=== PATIENT | female | born 1980 | race Hispanic/Latino ===

== ENCOUNTER 2020-10-19 14:08 | Emergency (ER) | payer OTHER, SELFPAY ==
[2020-10-19] MEDS ORDERED: ALBUTEROL INHALER 90MCG/INH IH ONE (14:46)
[2020-10-19] MEDS ORDERED: ACETAMINOPHEN WITH CODEINE 1 TAB TAB ONE (14:48)
[2020-10-19] MEDS ORDERED: DEXAMETHASONE SOD PHOSPHATE 10MG/ML 1ML VIAL ONE (14:48)
[2020-10-19] MEDS ORDERED: ASPIRIN 325 MG TABLET ONE (14:48)
[2020-10-19] MEDS ORDERED: AZITHROMYCIN 250 MG TABLET PO ONE (14:48)
[2020-10-19] MEDS ORDERED: LEVOFLOXACIN 500 MG/D5W 100 ML 100 ML ONE (14:48)
[2020-10-19 15:39] LABS: ALBUMIN 3.8 g/dL (3.5-5.0); BILIRUBIN,TOTAL 0.3 mg/dL (0.2-1.0); POTASSIUM 3.5 mmol/L (3.5-5.1); TOTAL PROTEIN, SERUM 8.1 g/dL (6.0-8.3)
[2020-10-19 15:49] LABS: APPEARANCE,URINE CLOUDY (CLEAR); BILIRUBIN,URINE SMALL (NEGATIVE); COLOR,URINE YELLOW (YELLOW); GLUCOSE, URINE (UA) NEGATIVE (NEGATIVE); KETONES,URINE 5 mg/dL (NEGATIVE); LEUKOCYTE ESTERASE ,URINE NEGATIVE (NEGATIVE); NITRATE,URINE NEGATIVE (NEGATIVE); OCCULT BLOOD,URINE LARGE (NEGATIVE); PH,URINE 5.5 (5.0-8.0); PROTEIN,URINE 100 mg/dL (NEGATIVE)
[2020-10-19 16:00] LABS: RBC,URINE >100 /HPF (0-1)
[2020-10-19 16:03] LABS: BACTERIA,URINE Few /HPF (None Seen); SQUAMOUS EPITHELIAL CELL,UR Few /HPF (0-2)
[2020-10-19 16:03] LABS: BASOPHILS % (AUTO) 0.4 % (0.0-5.0); EOSINOPHILS % (AUTO) 1.3 % (0.0-8.0); HEMATOCRIT 34.2 % (36-48); LYMPHOCYTES % (AUTO) 28.8 % (21.0-51.0); MEAN CORPUSCULAR HEMOGLOBIN 31.4 pg (27.0-33.0); MEAN CORPUSCULAR HGB CONC 33.6 g/dL (32.0-36.0); MEAN CORPUSCULAR VOLUME 93.4 fL (79-99); MONOCYTES % (AUTO) 12.9 % (3.0-13.0); NEUTROPHILS % (AUTO) 56.4 % (40.0-77.0); PLATELET COUNT (AUTO) 286 K/uL (130-400); RED BLOOD CELL COUNT(AUTO) 3.66 MIL/uL (4.00-5.50); RED CELL DISTRIBUTION WIDTH 12.8 % (11.0-15.5); WHITE BLOOD COUNT (AUTO) 5.4 K/uL (4.8-10.8)
[2020-10-19 16:05] LABS: CREATININE 0.9 mg/dL (0.5-1.5)
[2020-10-19 16:12] LABS: INR 0.96 (0.85-1.15); PROTHROMBIN TIME 10.3 SEC (9.6-11.6)
[2020-10-19 16:14] LABS: PARTIAL THROMBOPLASTIN TIME 25.5 SEC (26.3-35.5)
== END 2020-10-19 16:50 | disposition home or self-care (01) ==
LOC: EDH 14:08
DX: U07.1 COVID-19 (principal); J12.9 Viral pneumonia, unspecified; Z88.0 Allergy status to penicillin
CPT/HCPCS: 36415; 71045; 80053; 81001; 82550; 83605; 84145; 84484; 85025; 85610; 85730; 87040 ×2; 87088; 87426; 87804 ×2; 87880; 96365; 96375; 99284; J1100; J1956

== ENCOUNTER 2020-10-24 23:51 | Inpatient (IN) | payer OTHER, SELFPAY ==
[~2020-10-24] VITALS: Ht 152.4 cm; Wt 100.2 kg
[2020-10-25] MEDS ORDERED: DEXAMETHASONE SOD PHOSPHATE 10MG/ML 1ML VIAL ONE (00:12)
[2020-10-25] MEDS ORDERED: CEFTRIAXONE SODIUM 2 GM VIAL ONE (00:13)
[2020-10-25] MEDS ORDERED: SODIUM CHLORIDE 0.9% 50 ML IV ONE (00:13)
[2020-10-25] MEDS ORDERED: AZITHROMYCIN 500MG+NS 250ML 250 ML IV ONE (00:13)
[2020-10-25] MEDS ORDERED: SODIUM CHLORIDE 0.9% 1000ML 1,000 ML IV ONE (00:41)
[2020-10-25 00:55] LABS: BASOPHILS % (AUTO) 0.1 % (0.0-5.0); HEMATOCRIT 38.4 % (36-48); LYMPHOCYTES % (AUTO) 12.4 % (21.0-51.0); MEAN CORPUSCULAR HEMOGLOBIN 30.5 pg (27.0-33.0); MEAN CORPUSCULAR HGB CONC 33.3 g/dL (32.0-36.0); MEAN CORPUSCULAR VOLUME 91.6 fL (79-99); MONOCYTES % (AUTO) 4.3 % (3.0-13.0); NEUTROPHILS % (AUTO) 82.8 % (40.0-77.0); PLATELET COUNT (AUTO) 310 K/uL (130-400); RED BLOOD CELL COUNT(AUTO) 4.19 MIL/uL (4.00-5.50); RED CELL DISTRIBUTION WIDTH 12.7 % (11.0-15.5); WHITE BLOOD COUNT (AUTO) 9.7 K/uL (4.8-10.8)
[2020-10-25 01:02] LABS: CREATININE 0.9 mg/dL (0.5-1.5); POTASSIUM 3.5 mmol/L (3.5-5.1)
[2020-10-25 01:06] LABS: ALBUMIN 3.6 g/dL (3.5-5.0); BILIRUBIN,TOTAL 0.4 mg/dL (0.2-1.0); TOTAL PROTEIN, SERUM 9.2 g/dL (6.0-8.3)
[2020-10-25 01:08] LABS: INR 0.92 (0.85-1.15); PROTHROMBIN TIME 9.9 SEC (9.6-11.6)
[2020-10-25 01:09] LABS: PARTIAL THROMBOPLASTIN TIME 22.5 SEC (26.3-35.5)
[2020-10-25 01:15] LABS: ABG BASE EXCESS -1.5 mmol/L (-2.0-3.0); ABG HCO3 21.9 mmol/L (21.0-28.0); ABG OXYGEN SATURATION 96.7 % (95.0-99.0); ABG PCO2 33 mmHg (32-45)
[2020-10-25 01:29] LABS: B-TYPE NATRIURETIC PEPTIDE 14 pg/mL (0-100)
[2020-10-25 03:12] LABS: APPEARANCE,URINE Clear (CLEAR); BILIRUBIN,URINE Small (NEGATIVE); COLOR,URINE Dark Yellow (YELLOW); GLUCOSE, URINE (UA) Negative (NEGATIVE); KETONES,URINE Trace mg/dL (NEGATIVE); LEUKOCYTE ESTERASE ,URINE Trace (NEGATIVE); NITRATE,URINE Negative (NEGATIVE); OCCULT BLOOD,URINE Trace (NEGATIVE); PH,URINE 5.5 (5.0-8.0); PROTEIN,URINE POS 1+ mg/dL (NEGATIVE)
[2020-10-25 03:21] LABS: BACTERIA,URINE Moderate /HPF (None Seen); MUCUS,URINE Moderate LPF (None Seen); RBC,URINE 0-1 /HPF (0-1); SQUAMOUS EPITHELIAL CELL,UR 0-2 /HPF (0-2); WBC,URINE 0-1 /HPF (0-1)
[2020-10-25] MEDS ORDERED: IOHEXOL 350 MG/ML 100ML INFUS..BTL IV ONE (04:45)
[2020-10-25] MEDS ORDERED: LEVE-43 PO (05:10)
[2020-10-25] MEDS ORDERED: DIVA500T69 PO (05:13)
[2020-10-25 06:00] VITALS: BP 97/65
[2020-10-25 07:22] LABS: BASOPHILS % (AUTO) 0.1 % (0.0-5.0); EOSINOPHILS % (AUTO) 1.8 % (0.0-8.0); LYMPHOCYTES % (AUTO) 11.9 % (21.0-51.0); MEAN CORPUSCULAR HEMOGLOBIN 30.1 pg (27.0-33.0); MEAN CORPUSCULAR HGB CONC 32.1 g/dL (32.0-36.0); MEAN CORPUSCULAR VOLUME 93.8 fL (79-99); MONOCYTES % (AUTO) 3.1 % (3.0-13.0); NEUTROPHILS % (AUTO) 82.7 % (40.0-77.0); PLATELET COUNT (AUTO) 301 K/uL (130-400); RED BLOOD CELL COUNT(AUTO) 3.52 MIL/uL (4.00-5.50); RED CELL DISTRIBUTION WIDTH 12.9 % (11.0-15.5); WHITE BLOOD COUNT (AUTO) 7.8 K/uL (4.8-10.8)
[2020-10-25] MEDS ORDERED: ERGOCALCIFEROL (VITAMIN D2) 50,000 UNIT CAPSULE PO SCH (08:45)
[2020-10-25] MEDS ORDERED: FAMOTIDINE/PF 20 MG/2 ML VIAL IV SCH (09:00)
[2020-10-25] MEDS ORDERED: PHARMACY COMMUNICATION MISC SCH (09:15)
[2020-10-25] MEDS: DEXAMETHASONE SOD PHOSPHATE 4 MG/ML 1ML VIAL IVP SCH (09:58)
[2020-10-25] MEDS: FAMOTIDINE/PF 20 MG/2 ML VIAL IV SCH ×2 (09:58→20:42)
[2020-10-25] MEDS: GUAIFENESIN-CODEINE 5 ML SYRUP PO PRN ×3 (09:58→20:42)
[2020-10-25] MEDS: LEVETIRACETAM 500 MG TABLET PO SCH ×2 (09:59→20:41)
[2020-10-25] MEDS: ZINC SULFATE 220 CAPSULE PO SCH (09:59)
[2020-10-25] MEDS: DOXYCYCLINE HYCLATE 100 MG TABLET PO SCH ×2 (09:59→20:41)
[2020-10-25] MEDS: ASCORBIC ACID 500 MG TAB PO SCH (09:59)
[2020-10-25] MEDS: ENOXAPARIN SODIUM 40 MG/0.4 ML SYRINGE SQ SCH (10:00)
[2020-10-25 14:46] VITALS: BP 132/85
[2020-10-25] MEDS ORDERED: SODIUM CHLORIDE 0.9% 250 ML IV ONE (15:49)
[2020-10-25 20:00] VITALS: BP 123/79
[2020-10-25] MEDS: DIVALPROEX SODIUM 1500 MG PO SCH (20:56)
[2020-10-25] MEDS ORDERED: DIVALPROEX SODIUM 250 MG TABLET.DR PO SCH (21:00)
[2020-10-26 00:35] VITALS: BP 126/68
[2020-10-26] MEDS: GUAIFENESIN-CODEINE 5 ML SYRUP PO PRN ×4 (02:03→21:34)
[2020-10-26] MEDS ORDERED: QUETIAPINE FUMARATE 25 MG TAB ONE (03:48)
[2020-10-26 04:12] VITALS: BP 123/66
[2020-10-26 05:30] LABS: BASOPHILS % (AUTO) 0.1 % (0.0-5.0); HEMATOCRIT 31.2 % (36-48); LYMPHOCYTES % (AUTO) 21.4 % (21.0-51.0); MEAN CORPUSCULAR HEMOGLOBIN 30.4 pg (27.0-33.0); MEAN CORPUSCULAR HGB CONC 32.7 g/dL (32.0-36.0); MEAN CORPUSCULAR VOLUME 93.1 fL (79-99); MONOCYTES % (AUTO) 4.8 % (3.0-13.0); NEUTROPHILS % (AUTO) 73.2 % (40.0-77.0); PLATELET COUNT (AUTO) 313 K/uL (130-400); RED BLOOD CELL COUNT(AUTO) 3.35 MIL/uL (4.00-5.50); WHITE BLOOD COUNT (AUTO) 10.2 K/uL (4.8-10.8)
[2020-10-26 05:55] LABS: ALBUMIN 2.9 g/dL (3.5-5.0); BILIRUBIN,TOTAL 0.5 mg/dL (0.2-1.0); CREATININE 0.9 mg/dL (0.5-1.5); CRP QUANTITATIVE 101.4 mg/L (0.00-9.0); POTASSIUM 3.6 mmol/L (3.5-5.1); TOTAL PROTEIN, SERUM 7.7 g/dL (6.0-8.3)
[2020-10-26 09:14] VITALS: BP 113/64
[2020-10-26] MEDS: DEXAMETHASONE SOD PHOSPHATE 4 MG/ML 1ML VIAL IVP SCH (09:15)
[2020-10-26] MEDS: ZINC SULFATE 220 CAPSULE PO SCH (09:15)
[2020-10-26] MEDS: ASCORBIC ACID 500 MG TAB PO SCH (09:15)
[2020-10-26] MEDS: LEVETIRACETAM 500 MG TABLET PO SCH ×2 (09:15→21:34)
[2020-10-26] MEDS: FAMOTIDINE/PF 20 MG/2 ML VIAL IV SCH ×2 (09:15→21:35)
[2020-10-26] MEDS: DOXYCYCLINE HYCLATE 100 MG TABLET PO SCH ×2 (09:15→21:34)
[2020-10-26] MEDS: ENOXAPARIN SODIUM 40 MG/0.4 ML SYRINGE SQ SCH (09:16)
[2020-10-26] MEDS ORDERED: PHARMACY COMMUNICATION MISC SCH (11:00)
[2020-10-26 13:00] VITALS: BP 113/79
[2020-10-26] MEDS ORDERED: REMDESIVIR (EUA) 520 200 MG in SODIUM CHLORIDE 0.9% 250 ML IV ONE (15:00)
[2020-10-26] MEDS ORDERED: COMPOUND IV REFRIGERATED 1 EACH IVSOLN MISC PRN (15:00)
[2020-10-26 17:24] VITALS: BP 118/75
[2020-10-26 20:00] VITALS: BP 94/53
[2020-10-26] MEDS: DIVALPROEX SODIUM 1500 MG PO SCH (21:00)
[2020-10-26] MEDS: QUETIAPINE FUMARATE 25 MG TAB PO SCH (21:34)
[2020-10-27 00:47] VITALS: BP 108/59
[2020-10-27] MEDS: GUAIFENESIN-CODEINE 5 ML SYRUP PO PRN ×6 (02:31→23:08)
[2020-10-27 05:09] VITALS: BP 93/58
[2020-10-27 05:46] LABS: EOSINOPHILS % (AUTO) 0.1 % (0.0-8.0); HEMATOCRIT 30.8 % (36-48); LYMPHOCYTES % (AUTO) 22.1 % (21.0-51.0); MEAN CORPUSCULAR HEMOGLOBIN 30.5 pg (27.0-33.0); MEAN CORPUSCULAR HGB CONC 32.5 g/dL (32.0-36.0); MEAN CORPUSCULAR VOLUME 93.9 fL (79-99); MONOCYTES % (AUTO) 4.4 % (3.0-13.0); NEUTROPHILS % (AUTO) 72.9 % (40.0-77.0); PLATELET COUNT (AUTO) 296 K/uL (130-400); RED BLOOD CELL COUNT(AUTO) 3.28 MIL/uL (4.00-5.50); RED CELL DISTRIBUTION WIDTH 12.9 % (11.0-15.5); WHITE BLOOD COUNT (AUTO) 8.8 K/uL (4.8-10.8)
[2020-10-27] MEDS: PHARMACY COMMUNICATION MISC SCH (06:00)
[2020-10-27 06:24] LABS: ALBUMIN 2.5 g/dL (3.5-5.0); BILIRUBIN,TOTAL 0.4 mg/dL (0.2-1.0); POTASSIUM 3.9 mmol/L (3.5-5.1); TOTAL PROTEIN, SERUM 7.3 g/dL (6.0-8.3)
[2020-10-27 06:37] LABS: CRP QUANTITATIVE 201.3 mg/L (0.00-9.0)
[2020-10-27 07:28] LABS: CREATININE 0.6 mg/dL (0.5-1.5)
[2020-10-27] MEDS: DEXAMETHASONE SOD PHOSPHATE 4 MG/ML 1ML VIAL IVP SCH (08:56)
[2020-10-27] MEDS: LEVETIRACETAM 500 MG TABLET PO SCH ×2 (08:56→19:49)
[2020-10-27] MEDS: ZINC SULFATE 220 CAPSULE PO SCH (08:56)
[2020-10-27] MEDS: DOXYCYCLINE HYCLATE 100 MG TABLET PO SCH ×2 (08:56→19:49)
[2020-10-27] MEDS: ASCORBIC ACID 500 MG TAB PO SCH (08:56)
[2020-10-27] MEDS: FAMOTIDINE/PF 20 MG/2 ML VIAL IV SCH ×2 (08:56→19:49)
[2020-10-27] MEDS: ENOXAPARIN SODIUM 40 MG/0.4 ML SYRINGE SQ SCH (08:58)
[2020-10-27] MEDS ORDERED: ONDANSETRON HCL 4 MG/2 ML VIAL IVP PRN (09:23)
[2020-10-27] MEDS: BENZONATATE 100 MG CAPSULE PO PRN ×2 (09:38→14:49)
[2020-10-27 10:22] VITALS: BP 103/51
[2020-10-27 12:00] VITALS: BP 110/68
[2020-10-27] MEDS: REMDESIVIR (EUA) 520 100 MG in SODIUM CHLORIDE 0.9% 250 ML IV SCH (14:52)
[2020-10-27 16:00] VITALS: BP 117/56
[2020-10-27 19:45] VITALS: BP 106/67
[2020-10-27] MEDS: QUETIAPINE FUMARATE 25 MG TAB PO SCH (19:49)
[2020-10-27] MEDS: DIVALPROEX SODIUM 1500 MG PO SCH (19:50)
[2020-10-28 00:04] VITALS: BP 90/55
[2020-10-28 03:51] VITALS: BP 96/52
[2020-10-28] MEDS: PHARMACY COMMUNICATION MISC SCH (05:41)
[2020-10-28 06:03] LABS: BASOPHILS % (AUTO) 0.1 % (0.0-5.0); EOSINOPHILS % (AUTO) 0.1 % (0.0-8.0); HEMATOCRIT 23.7 % (36-48); LYMPHOCYTES % (AUTO) 21.4 % (21.0-51.0); MEAN CORPUSCULAR HGB CONC 32.1 g/dL (32.0-36.0); MEAN CORPUSCULAR VOLUME 93.7 fL (79-99); MONOCYTES % (AUTO) 4.9 % (3.0-13.0); NEUTROPHILS % (AUTO) 73.1 % (40.0-77.0); PLATELET COUNT (AUTO) 274 K/uL (130-400); RED BLOOD CELL COUNT(AUTO) 2.53 MIL/uL (4.00-5.50); RED CELL DISTRIBUTION WIDTH 12.7 % (11.0-15.5); WHITE BLOOD COUNT (AUTO) 9.4 K/uL (4.8-10.8)
[2020-10-28 06:24] LABS: ALBUMIN 2.4 g/dL (3.5-5.0); BILIRUBIN,TOTAL 0.3 mg/dL (0.2-1.0); CREATININE 0.6 mg/dL (0.5-1.5); CRP QUANTITATIVE 154.3 mg/L (0.00-9.0); POTASSIUM 3.7 mmol/L (3.5-5.1)
[2020-10-28 08:00] VITALS: BP 128/75
[2020-10-28] MEDS: ASCORBIC ACID 500 MG TAB PO SCH (08:38)
[2020-10-28] MEDS: LEVETIRACETAM 500 MG TABLET PO SCH ×2 (08:38→20:11)
[2020-10-28] MEDS: GUAIFENESIN-CODEINE 5 ML SYRUP PO PRN ×3 (08:38→20:14)
[2020-10-28] MEDS: ZINC SULFATE 220 CAPSULE PO SCH (08:38)
[2020-10-28] MEDS: DOXYCYCLINE HYCLATE 100 MG TABLET PO SCH ×2 (08:38→20:11)
[2020-10-28] MEDS: FAMOTIDINE/PF 20 MG/2 ML VIAL IV SCH ×2 (08:38→20:11)
[2020-10-28] MEDS: BENZONATATE 100 MG CAPSULE PO PRN ×2 (08:38→16:46)
[2020-10-28] MEDS: ENOXAPARIN SODIUM 40 MG/0.4 ML SYRINGE SQ SCH (08:39)
[2020-10-28] MEDS: DEXAMETHASONE SOD PHOSPHATE 4 MG/ML 1ML VIAL IVP SCH (08:39)
[2020-10-28 12:25] VITALS: BP 124/75
[2020-10-28 12:27] LABS: HEMATOCRIT 31.8 % (36-48)
[2020-10-28] MEDS: REMDESIVIR (EUA) 520 100 MG in SODIUM CHLORIDE 0.9% 250 ML IV SCH (14:21)
[2020-10-28 16:00] VITALS: BP 97/56
[2020-10-28 19:00] VITALS: BP 93/53
[2020-10-28] MEDS: QUETIAPINE FUMARATE 25 MG TAB PO SCH (20:11)
[2020-10-28] MEDS: DIVALPROEX SODIUM 1500 MG PO SCH (20:11)
[2020-10-29 00:02] VITALS: BP 113/53
[2020-10-29 04:00] VITALS: BP 104/49
[2020-10-29] MEDS: PHARMACY COMMUNICATION MISC SCH (05:08)
[2020-10-29 06:09] LABS: BASOPHILS % (AUTO) 0.1 % (0.0-5.0); EOSINOPHILS % (AUTO) 0.2 % (0.0-8.0); HEMATOCRIT 30.6 % (36-48); LYMPHOCYTES % (AUTO) 21.4 % (21.0-51.0); MEAN CORPUSCULAR HEMOGLOBIN 30.4 pg (27.0-33.0); MEAN CORPUSCULAR HGB CONC 32.4 g/dL (32.0-36.0); MEAN CORPUSCULAR VOLUME 93.9 fL (79-99); MONOCYTES % (AUTO) 5.9 % (3.0-13.0); NEUTROPHILS % (AUTO) 71.8 % (40.0-77.0); PLATELET COUNT (AUTO) 304 K/uL (130-400); RED BLOOD CELL COUNT(AUTO) 3.26 MIL/uL (4.00-5.50); RED CELL DISTRIBUTION WIDTH 12.5 % (11.0-15.5); WHITE BLOOD COUNT (AUTO) 9.5 K/uL (4.8-10.8)
[2020-10-29 06:55] LABS: ALBUMIN 2.5 g/dL (3.5-5.0); BILIRUBIN,TOTAL 0.3 mg/dL (0.2-1.0); CREATININE 0.7 mg/dL (0.5-1.5); CRP QUANTITATIVE 107.4 mg/L (0.00-9.0); POTASSIUM 3.7 mmol/L (3.5-5.1); TOTAL PROTEIN, SERUM 7.1 g/dL (6.0-8.3)
[2020-10-29 08:00] VITALS: BP 159/69
[2020-10-29] MEDS: LEVETIRACETAM 500 MG TABLET PO SCH ×2 (08:32→20:41)
[2020-10-29] MEDS: DEXAMETHASONE SOD PHOSPHATE 4 MG/ML 1ML VIAL IVP SCH (08:33)
[2020-10-29] MEDS: ZINC SULFATE 220 CAPSULE PO SCH (08:33)
[2020-10-29] MEDS: FAMOTIDINE/PF 20 MG/2 ML VIAL IV SCH ×2 (08:33→20:41)
[2020-10-29] MEDS: ASCORBIC ACID 500 MG TAB PO SCH (08:33)
[2020-10-29] MEDS: DOXYCYCLINE HYCLATE 100 MG TABLET PO SCH ×2 (08:33→20:41)
[2020-10-29] MEDS: ENOXAPARIN SODIUM 40 MG/0.4 ML SYRINGE SQ SCH (08:34)
[2020-10-29] MEDS: GUAIFENESIN-CODEINE 5 ML SYRUP PO PRN ×3 (09:59→21:10)
[2020-10-29] MEDS: BENZONATATE 100 MG CAPSULE PO PRN ×2 (09:59→17:18)
[2020-10-29 11:57] VITALS: BP 105/60
[2020-10-29] MEDS: REMDESIVIR (EUA) 520 100 MG in SODIUM CHLORIDE 0.9% 250 ML IV SCH (15:10)
[2020-10-29 18:23] VITALS: BP 109/70
[2020-10-29 19:00] VITALS: BP 105/58
[2020-10-29] MEDS: DIVALPROEX SODIUM 1500 MG PO SCH (20:41)
[2020-10-29] MEDS: ENOXAPARIN SODIUM 60 MG/0.6 ML SQ SCH (20:42)
[2020-10-29] MEDS: QUETIAPINE FUMARATE 25 MG TAB PO SCH (20:42)
[2020-10-30 00:01] VITALS: BP 100/54
[2020-10-30] MEDS: BENZONATATE 100 MG CAPSULE PO PRN ×2 (00:19→10:34)
[2020-10-30 04:00] VITALS: BP 100/63
[2020-10-30] MEDS: PHARMACY COMMUNICATION MISC SCH (05:08)
[2020-10-30 06:01] LABS: BASOPHILS % (AUTO) 0.1 % (0.0-5.0); EOSINOPHILS % (AUTO) 0.7 % (0.0-8.0); HEMATOCRIT 29.8 % (36-48); LYMPHOCYTES % (AUTO) 27.2 % (21.0-51.0); MEAN CORPUSCULAR HEMOGLOBIN 30.2 pg (27.0-33.0); MEAN CORPUSCULAR HGB CONC 32.6 g/dL (32.0-36.0); MEAN CORPUSCULAR VOLUME 92.8 fL (79-99); MONOCYTES % (AUTO) 5.8 % (3.0-13.0); NEUTROPHILS % (AUTO) 65.5 % (40.0-77.0); PLATELET COUNT (AUTO) 307 K/uL (130-400); RED BLOOD CELL COUNT(AUTO) 3.21 MIL/uL (4.00-5.50); RED CELL DISTRIBUTION WIDTH 12.5 % (11.0-15.5); WHITE BLOOD COUNT (AUTO) 8.8 K/uL (4.8-10.8)
[2020-10-30 06:14] LABS: ALBUMIN 2.2 g/dL (3.5-5.0); BILIRUBIN,TOTAL 0.3 mg/dL (0.2-1.0); CREATININE 0.7 mg/dL (0.5-1.5); CRP QUANTITATIVE 86.3 mg/L (0.00-9.0); POTASSIUM 3.6 mmol/L (3.5-5.1); TOTAL PROTEIN, SERUM 6.5 g/dL (6.0-8.3)
[2020-10-30 07:20] VITALS: BP 118/64
[2020-10-30] MEDS: DEXAMETHASONE SOD PHOSPHATE 4 MG/ML 1ML VIAL IVP SCH (10:28)
[2020-10-30] MEDS: FAMOTIDINE/PF 20 MG/2 ML VIAL IV SCH ×2 (10:32→20:11)
[2020-10-30] MEDS: ASCORBIC ACID 500 MG TAB PO SCH (10:33)
[2020-10-30] MEDS: DOXYCYCLINE HYCLATE 100 MG TABLET PO SCH ×2 (10:34→20:11)
[2020-10-30] MEDS: LEVETIRACETAM 500 MG TABLET PO SCH ×2 (10:34→20:11)
[2020-10-30] MEDS: ZINC SULFATE 220 CAPSULE PO SCH (10:34)
[2020-10-30] MEDS: ENOXAPARIN SODIUM 60 MG/0.6 ML SQ SCH ×2 (10:37→20:12)
[2020-10-30 16:00] VITALS: BP 111/51
[2020-10-30] MEDS: GUAIFENESIN-CODEINE 5 ML SYRUP PO PRN (16:42)
[2020-10-30] MEDS: REMDESIVIR (EUA) 520 100 MG in SODIUM CHLORIDE 0.9% 250 ML IV SCH (16:42)
[2020-10-30 19:00] VITALS: BP 97/68
[2020-10-30] MEDS: QUETIAPINE FUMARATE 25 MG TAB PO SCH (20:11)
[2020-10-30] MEDS: DIVALPROEX SODIUM 1500 MG PO SCH (21:00)
[2020-10-31] VITALS (7 sets, daily range): BP systolic 90–124; BP diastolic 52–70
[2020-10-31] MEDS: PHARMACY COMMUNICATION MISC SCH (06:00)
[2020-10-31 06:20] LABS: BASOPHILS % (AUTO) 0.1 % (0.0-5.0); EOSINOPHILS % (AUTO) 0.5 % (0.0-8.0); HEMATOCRIT 31.3 % (36-48); LYMPHOCYTES % (AUTO) 27.3 % (21.0-51.0); MEAN CORPUSCULAR HEMOGLOBIN 30.3 pg (27.0-33.0); MEAN CORPUSCULAR HGB CONC 32.9 g/dL (32.0-36.0); MEAN CORPUSCULAR VOLUME 92.1 fL (79-99); MONOCYTES % (AUTO) 4.8 % (3.0-13.0); NUCLEATED RED BLOOD CELLS 0.2 % (0.0-0.19); PLATELET COUNT (AUTO) 320 K/uL (130-400); RED CELL DISTRIBUTION WIDTH 12.5 % (11.0-15.5); WHITE BLOOD COUNT (AUTO) 8.4 K/uL (4.8-10.8)
[2020-10-31 06:41] LABS: ALBUMIN 2.4 g/dL (3.5-5.0); BILIRUBIN,TOTAL 0.4 mg/dL (0.2-1.0); CREATININE 0.6 mg/dL (0.5-1.5); CRP QUANTITATIVE 87.4 mg/L (0.00-9.0); POTASSIUM 3.8 mmol/L (3.5-5.1); TOTAL PROTEIN, SERUM 6.6 g/dL (6.0-8.3)
[2020-10-31] MEDS: LEVETIRACETAM 500 MG TABLET PO SCH ×2 (09:30→19:53)
[2020-10-31] MEDS: DOXYCYCLINE HYCLATE 100 MG TABLET PO SCH ×2 (09:30→19:53)
[2020-10-31] MEDS: ASCORBIC ACID 500 MG TAB PO SCH (09:30)
[2020-10-31] MEDS: BENZONATATE 100 MG CAPSULE PO PRN (09:30)
[2020-10-31] MEDS: ZINC SULFATE 220 CAPSULE PO SCH (09:30)
[2020-10-31] MEDS: GUAIFENESIN-CODEINE 5 ML SYRUP PO PRN ×2 (09:31→15:55)
[2020-10-31] MEDS: FAMOTIDINE/PF 20 MG/2 ML VIAL IV SCH ×2 (09:31→19:53)
[2020-10-31] MEDS: DEXAMETHASONE SOD PHOSPHATE 4 MG/ML 1ML VIAL IVP SCH (09:31)
[2020-10-31] MEDS: ENOXAPARIN SODIUM 60 MG/0.6 ML SQ SCH ×2 (09:32→19:53)
[2020-10-31] MEDS: QUETIAPINE FUMARATE 25 MG TAB PO SCH (19:53)
[2020-10-31] MEDS: DIVALPROEX SODIUM 1500 MG PO SCH (19:59)
[2020-11-01 03:53] VITALS: BP 106/57
[2020-11-01] MEDS: GUAIFENESIN-CODEINE 5 ML SYRUP PO PRN ×3 (06:15→21:36)
[2020-11-01 08:20] VITALS: BP 100/58
[2020-11-01] MEDS: FAMOTIDINE/PF 20 MG/2 ML VIAL IV SCH ×2 (09:13→21:34)
[2020-11-01] MEDS: ASCORBIC ACID 500 MG TAB PO SCH (09:14)
[2020-11-01] MEDS: ZINC SULFATE 220 CAPSULE PO SCH (09:14)
[2020-11-01] MEDS: ENOXAPARIN SODIUM 60 MG/0.6 ML SQ SCH ×2 (09:14→21:35)
[2020-11-01] MEDS: LEVETIRACETAM 500 MG TABLET PO SCH ×2 (09:14→21:34)
[2020-11-01] MEDS: DEXAMETHASONE SOD PHOSPHATE 4 MG/ML 1ML VIAL IVP SCH (09:14)
[2020-11-01 12:30] VITALS: BP 86/44
[2020-11-01 16:20] VITALS: BP 132/81
[2020-11-01 20:25] VITALS: BP 103/60
[2020-11-01] MEDS: QUETIAPINE FUMARATE 25 MG TAB PO SCH (21:34)
[2020-11-01] MEDS: DIVALPROEX SODIUM 1500 MG PO SCH (21:36)
[2020-11-02 00:27] VITALS: BP 95/50
[2020-11-02] MEDS ORDERED: BENZONATATE 100 MG CAPSULE PO PRN (01:22)
[2020-11-02 04:29] VITALS: BP 96/48
[2020-11-02 08:17] VITALS: BP 90/61
[2020-11-02] MEDS: FAMOTIDINE/PF 20 MG/2 ML VIAL IV SCH ×2 (08:21→19:47)
[2020-11-02] MEDS: ZINC SULFATE 220 CAPSULE PO SCH (08:21)
[2020-11-02] MEDS: DEXAMETHASONE SOD PHOSPHATE 4 MG/ML 1ML VIAL IVP SCH (08:21)
[2020-11-02] MEDS: LEVETIRACETAM 500 MG TABLET PO SCH ×2 (08:21→19:47)
[2020-11-02] MEDS: ASCORBIC ACID 500 MG TAB PO SCH (08:21)
[2020-11-02] MEDS: ENOXAPARIN SODIUM 60 MG/0.6 ML SQ SCH ×2 (08:22→19:47)
[2020-11-02] MEDS: GUAIFENESIN-CODEINE 5 ML SYRUP PO PRN (11:26)
[2020-11-02 12:15] VITALS: BP 104/69
[2020-11-02 16:10] VITALS: BP 128/61
[2020-11-02] MEDS: BENZONATATE 100 MG CAPSULE PO SCH (17:12)
[2020-11-02] MEDS: QUETIAPINE FUMARATE 25 MG TAB PO SCH (19:47)
[2020-11-02 20:12] VITALS: BP 110/62
[2020-11-02] MEDS: DIVALPROEX SODIUM 1500 MG PO SCH (20:27)
[2020-11-03 00:12] VITALS: BP 96/62
[2020-11-03] MEDS: BENZONATATE 100 MG CAPSULE PO SCH ×3 (01:07→16:01)
[2020-11-03 04:04] LABS: ABG HCO3 28.5 mmol/L (21.0-28.0); ABG OXYGEN SATURATION 96.2 % (95.0-99.0); ABG PCO2 42 mmHg (32-45)
[2020-11-03 04:12] VITALS: BP 81/42
[2020-11-03 04:59] LABS: BASOPHILS % (AUTO) 0.2 % (0.0-5.0); EOSINOPHILS % (AUTO) 0.4 % (0.0-8.0); HEMATOCRIT 34.4 % (36-48); LYMPHOCYTES % (AUTO) 33.2 % (21.0-51.0); MEAN CORPUSCULAR VOLUME 93.7 fL (79-99); MONOCYTES % (AUTO) 4.4 % (3.0-13.0); NEUTROPHILS % (AUTO) 60.8 % (40.0-77.0); NUCLEATED RED BLOOD CELLS 0.2 % (0.0-0.19); PLATELET COUNT (AUTO) 328 K/uL (130-400); RED BLOOD CELL COUNT(AUTO) 3.67 MIL/uL (4.00-5.50); RED CELL DISTRIBUTION WIDTH 13.2 % (11.0-15.5); WHITE BLOOD COUNT (AUTO) 10.7 K/uL (4.8-10.8)
[2020-11-03 05:08] LABS: INR 1.02 (0.85-1.15); PROTHROMBIN TIME 10.9 SEC (9.6-11.6)
[2020-11-03 05:09] LABS: PARTIAL THROMBOPLASTIN TIME 27.2 SEC (26.3-35.5)
[2020-11-03 05:22] LABS: ALBUMIN 2.6 g/dL (3.5-5.0); BILIRUBIN,TOTAL 0.4 mg/dL (0.2-1.0); CREATININE 0.6 mg/dL (0.5-1.5); MAGNESIUM 2.6 mg/dL (1.80-2.40); PHOSPHORUS 4.2 mg/dL (2.5-4.9); TOTAL PROTEIN, SERUM 6.5 g/dL (6.0-8.3)
[2020-11-03 05:30] LABS: B-TYPE NATRIURETIC PEPTIDE 37 pg/mL (0-100)
[2020-11-03 08:26] VITALS: BP 97/60
[2020-11-03] MEDS: LEVETIRACETAM 500 MG TABLET PO SCH ×2 (09:16→19:49)
[2020-11-03] MEDS: DEXAMETHASONE SOD PHOSPHATE 4 MG/ML 1ML VIAL IVP SCH (09:16)
[2020-11-03] MEDS: ZINC SULFATE 220 CAPSULE PO SCH (09:16)
[2020-11-03] MEDS: ASCORBIC ACID 500 MG TAB PO SCH (09:16)
[2020-11-03] MEDS: ENOXAPARIN SODIUM 60 MG/0.6 ML SQ SCH ×2 (09:17→19:50)
[2020-11-03] MEDS: FAMOTIDINE/PF 20 MG/2 ML VIAL IV SCH ×2 (09:17→19:49)
[2020-11-03 12:25] VITALS: BP 95/58
[2020-11-03] MEDS: METHYLPREDNISOLONE SOD SUCC 125MG/2ML VIAL IVP SCH ×2 (16:05→22:11)
[2020-11-03 16:07] VITALS: BP 116/64
[2020-11-03] MEDS: QUETIAPINE FUMARATE 25 MG TAB PO SCH (19:49)
[2020-11-03] MEDS: DIVALPROEX SODIUM 1500 MG PO SCH (19:50)
[2020-11-03 20:00] VITALS: BP 99/60
[2020-11-04] MEDS: BENZONATATE 100 MG CAPSULE PO SCH ×3 (00:21→16:35)
[2020-11-04 00:38] VITALS: BP 103/58
[2020-11-04] MEDS: METHYLPREDNISOLONE SOD SUCC 125MG/2ML VIAL IVP SCH ×4 (04:15→21:02)
[2020-11-04 05:21] VITALS: BP 98/58
[2020-11-04 08:24] VITALS: BP 93/54
[2020-11-04] MEDS: ASCORBIC ACID 500 MG TAB PO SCH (08:29)
[2020-11-04] MEDS: FAMOTIDINE/PF 20 MG/2 ML VIAL IV SCH ×2 (08:29→21:02)
[2020-11-04] MEDS: LEVETIRACETAM 500 MG TABLET PO SCH ×2 (08:29→21:02)
[2020-11-04] MEDS: ZINC SULFATE 220 CAPSULE PO SCH (08:29)
[2020-11-04] MEDS: ENOXAPARIN SODIUM 40 MG/0.4 ML SYRINGE SQ SCH (08:29)
[2020-11-04] MEDS: ENOXAPARIN SODIUM 60 MG/0.6 ML SQ SCH ×2 (08:30→21:02)
[2020-11-04 11:25] VITALS: BP 107/61
[2020-11-04 16:23] VITALS: BP 103/54
[2020-11-04 20:33] VITALS: BP 106/54
[2020-11-04] MEDS: DIVALPROEX SODIUM 1500 MG PO SCH (21:00)
[2020-11-04] MEDS: QUETIAPINE FUMARATE 25 MG TAB PO SCH (21:02)
[2020-11-05 00:08] VITALS: BP 93/50
[2020-11-05] MEDS: BENZONATATE 100 MG CAPSULE PO SCH ×3 (01:07→16:30)
[2020-11-05] MEDS: METHYLPREDNISOLONE SOD SUCC 125MG/2ML VIAL IVP SCH ×3 (03:22→15:02)
[2020-11-05 04:43] VITALS: BP 95/60
[2020-11-05 08:02] VITALS: BP 97/61
[2020-11-05] MEDS: FAMOTIDINE/PF 20 MG/2 ML VIAL IV SCH (08:23)
[2020-11-05] MEDS: LEVETIRACETAM 500 MG TABLET PO SCH (08:24)
[2020-11-05] MEDS: ZINC SULFATE 220 CAPSULE PO SCH (08:24)
[2020-11-05] MEDS: ASCORBIC ACID 500 MG TAB PO SCH (08:24)
[2020-11-05] MEDS: ENOXAPARIN SODIUM 40 MG/0.4 ML SYRINGE SQ SCH (08:25)
[2020-11-05] MEDS: ENOXAPARIN SODIUM 60 MG/0.6 ML SQ SCH (08:25)
[2020-11-05 08:55] LABS: CREATININE 0.7 mg/dL (0.5-1.5); POTASSIUM 4.2 mmol/L (3.5-5.1)
[2020-11-05 11:38] VITALS: BP 101/59
== END 2020-11-05 17:12 | DRG 177 ==
LOC: EDH 23:51 → EDHIP 23:52 → 4BH 10-25 04:02
PROVIDERS: ADMIT Internal Medicine; ATTEND Internal Medicine
PROC: XW13325 Transfusion of Convalescent Plasma (Nonautologous) into Peripheral Vein, Percutaneous Approach, New Technology Group 5 (ICD-10-PCS; principal; 2020-10-25)
PROC: XW033E5 Introduction of Remdesivir Anti-infective into Peripheral Vein, Percutaneous Approach, New Technology Group 5 (ICD-10-PCS; 2020-10-27)
DX: U07.1 COVID-19 (principal); J96.01 Acute respiratory failure with hypoxia; J12.82 Pneumonia due to coronavirus disease 2019; J44.0 Chronic obstructive pulmonary disease with (acute) lower respiratory infection; N39.0 Urinary tract infection, site not specified; Z68.41 Body mass index [BMI] 40.0-44.9, adult; E66.01 Morbid (severe) obesity due to excess calories; E11.9 Type 2 diabetes mellitus without complications; G40.909 Epilepsy, unspecified, not intractable, without status epilepticus; G47.33 Obstructive sleep apnea (adult) (pediatric); Z82.49 Family history of ischemic heart disease and other diseases of the circulatory system; Z88.0 Allergy status to penicillin
CPT/HCPCS: 36415; 36430; 36600; 71045; 71275; 80048; 80053; 81001; 82550; 82803; 82948; 83605; 83615; 83880; 84145; 84484; 85014; 85018; 85025; 85378; 85610; 85730; 86140; 86850; 86900; 86901; 86927; 87040; 87088; 87426; 87804; 93005; G0378; J0456; J0696; J1100; J1650; J2405; J2930; J3490; J7030; J7050; Q9967

== ENCOUNTER 2021-08-08 10:02 | Emergency (ER) | payer OTHER, SELFPAY ==
[~2021-08-08] VITALS: Ht 152.4 cm; Wt 77.1 kg
[~2021-08-08 10:02] MED LIST: DIVA500T69 PO; LEVE-43 PO
[2021-08-08] MEDS ORDERED: 0.9%NACL 1000ML 1,000 ML IV STA (10:23)
[2021-08-08 10:44] LABS: BASOPHILS % (AUTO) 0.6 % (0.0-5.0); EOSINOPHILS % (AUTO) 2.3 % (0.0-8.0); HEMATOCRIT 25.2 % (36-48); LYMPHOCYTES % (AUTO) 40.2 % (21.0-51.0); MEAN CORPUSCULAR HEMOGLOBIN 26.6 pg (27.0-33.0); MEAN CORPUSCULAR HGB CONC 32.1 g/dL (32.0-36.0); MEAN CORPUSCULAR VOLUME 82.6 fL (79-99); MONOCYTES % (AUTO) 9.7 % (3.0-13.0); PLATELET COUNT (AUTO) 330 K/uL (130-400); RED BLOOD CELL COUNT(AUTO) 3.05 MIL/uL (4.00-5.50); WHITE BLOOD COUNT (AUTO) 6.2 K/uL (4.8-10.8)
[2021-08-08 10:51] LABS: CREATININE 0.6 mg/dL (0.5-1.5); POTASSIUM 4.2 mmol/L (3.5-5.1)
[2021-08-08] MEDS ORDERED: LIDOCAINE HCL 400MG/20ML VIAL ONE (11:35)
[2021-08-08 11:38] LABS: APPEARANCE,URINE Clear (CLEAR); BILIRUBIN,URINE Negative (NEGATIVE); COLOR,URINE Yellow (YELLOW); GLUCOSE, URINE (UA) Negative (NEGATIVE); KETONES,URINE Negative (NEGATIVE); LEUKOCYTE ESTERASE ,URINE Small (NEGATIVE); NITRATE,URINE Negative (NEGATIVE); OCCULT BLOOD,URINE Large (NEGATIVE); PROTEIN,URINE Negative (NEGATIVE); UROBILINOGEN,URINE 0.2 mg/dL (0.2-1.0)
[2021-08-08] MEDS ORDERED: KETOROLAC 30MG VIAL (30MG/ML) ONE (11:40)
[2021-08-08 11:58] LABS: BACTERIA,URINE Rare /HPF (None Seen); RBC,URINE 26-50 /HPF (0-1); SQUAMOUS EPITHELIAL CELL,UR Rare /HPF (0-2); WBC,URINE 0-1 /HPF (0-1)
[2021-08-08] MEDS ORDERED: KETOROLAC 30MG VIAL (30MG/ML) IV SCH (12:00)
[2021-08-08] MEDS ORDERED: MEDR10TA PO (12:48)
[2021-08-08] MEDS ORDERED: IBUP-2070 PO (12:48)
[2021-08-08] MEDS ORDERED: MEDROXYPROGESTERONE ACET 5 MG TAB PO SCH (13:00)
[2021-08-08 13:27] VITALS: BP 113/57
== END 2021-08-08 13:35 | disposition home or self-care (01) ==
LOC: EDH 10:02
DX: N83.201 Unspecified ovarian cyst, right side (principal); N83.202 Unspecified ovarian cyst, left side; N93.9 Abnormal uterine and vaginal bleeding, unspecified; E78.00 Pure hypercholesterolemia, unspecified; Z79.1 Long term (current) use of non-steroidal anti-inflammatories (NSAID); Z79.3 Long term (current) use of hormonal contraceptives; Z79.899 Other long term (current) drug therapy; Z88.0 Allergy status to penicillin
CPT/HCPCS: 36415; 76857; 80048; 81001; 84703; 96361; 85025; 96374; 99285; J1885; J7030; J3490

== ENCOUNTER 2022-09-15 20:17 | Emergency (ER) | payer OTHER ==
[~2022-09-15] VITALS: Ht 152.4 cm; Wt 91.2 kg
[~2022-09-15 20:17] MED LIST changes: +IBUP-2070 PO; +MEDR10TA PO
[2022-09-15 20:33] VITALS: BP 140/85
[2022-09-15] MEDS ORDERED: IPRATROPIUM/ALBUTEROL SULFATE 3 ML SOLUTION IH ONE (21:00)
[2022-09-15] MEDS ORDERED: BENZ-39 PO (21:48)
[2022-09-15] MEDS ORDERED: DIPH1POW36 PO (21:48)
[2022-09-15] MEDS ORDERED: METH4TAB3 PO (21:50)
== END 2022-09-15 22:19 | disposition home or self-care (01) ==
LOC: EDH 20:17
DX: M94.0 Chondrocostal junction syndrome [Tietze] (principal); J06.9 Acute upper respiratory infection, unspecified; Z79.1 Long term (current) use of non-steroidal anti-inflammatories (NSAID); Z88.0 Allergy status to penicillin; Z90.49 Acquired absence of other specified parts of digestive tract
CPT/HCPCS: 71045; 94640

== ENCOUNTER 2022-09-21 20:32 | Emergency (ER) | payer MEDICAID, OTHER ==
[~2022-09-21] VITALS: Ht 149.9 cm; Wt 90.7 kg
[~2022-09-21 20:32] MED LIST changes: +BENZ-39 PO; +DIPH1POW36 PO; +METH4TAB3 PO
[2022-09-21 20:49] VITALS: BP 159/89
[2022-09-21] MEDS: BENZONATATE 100 MG CAPSULE PO SCH ×2 (21:16→21:52)
[2022-09-21] MEDS ORDERED: IBUPROFEN 400 MG TABLET ONE (21:48)
[2022-09-21] MEDS ORDERED: IPRATROPIUM/ALBUTEROL SULFATE 3 ML SOLUTION IH ONE (22:00)
[2022-09-21] MEDS ORDERED: PROMETHAZINE/CODEINE 6.25-10MG/5ML CUP PO ONE (22:00)
[2022-09-21] MEDS ORDERED: LIDOCAINE HCL 1% 20 ML VIAL MISC SCH (22:00)
[2022-09-21 23:06] LABS: APPEARANCE,URINE TURBID (CLEAR); BILIRUBIN,URINE 0.5 mg/dL (NEGATIVE); COLOR,URINE YELLOW (YELLOW); GLUCOSE, URINE (UA) 30 mg/dL (NEGATIVE); KETONES,URINE 5 mg/dL (NEGATIVE); LEUKOCYTE ESTERASE ,URINE 75 Leu/uL (NEGATIVE); NITRATE,URINE NEGATIVE (NEGATIVE); PH,URINE 5.5 (5.0-8.0); PROTEIN,URINE 200 mg/dL (NEGATIVE)
[2022-09-21 23:21] LABS: HCG,QUALITATIVE URINE NEGATIVE (NEGATIVE)
[2022-09-21 23:24] LABS: BACTERIA,URINE FEW /HPF (None Seen); MUCUS,URINE MANY LPF (None Seen); SQUAMOUS EPITHELIAL CELL,UR MANY /HPF (0-2); WBC,URINE 26-50 /HPF (0-1)
[2022-09-21 23:43] LABS: BASOPHILS % (AUTO) 0.3 % (0.0-5.0); EOSINOPHILS % (AUTO) 1.2 % (0.0-8.0); HEMATOCRIT 38.6 % (36-48); MEAN CORPUSCULAR HEMOGLOBIN 31.4 pg (27.0-33.0); MEAN CORPUSCULAR HGB CONC 35.8 g/dL (32.0-36.0); MEAN CORPUSCULAR VOLUME 87.9 fL (79-99); MONOCYTES % (AUTO) 4.7 % (3.0-13.0); NEUTROPHILS % (AUTO) 80.4 % (40.0-77.0); PLATELET COUNT (AUTO) 321 K/uL (130-400); RED BLOOD CELL COUNT(AUTO) 4.39 MIL/uL (4.00-5.50); WHITE BLOOD COUNT (AUTO) 17.8 K/uL (4.8-10.8)
[2022-09-21 23:54] LABS: ALBUMIN 3.8 g/dL (3.5-5.0)
[2022-09-21 23:58] LABS: TOTAL PROTEIN, SERUM 8.2 g/dL (6.0-8.3)
[2022-09-22 00:02] LABS: POTASSIUM 2.9 mmol/L (3.5-5.1)
[2022-09-22] MEDS ORDERED: LEVO750T68 PO (00:10)
[2022-09-22] MEDS ORDERED: KCL 20 MEQ ERTAB PO ONE (00:30)
== END 2022-09-22 00:27 | disposition home or self-care (01) ==
LOC: EDH 20:32
DX: J06.9 Acute upper respiratory infection, unspecified (principal); N39.0 Urinary tract infection, site not specified; R05.9 Cough, unspecified; Z20.822 Contact with and (suspected) exposure to COVID-19; Z88.0 Allergy status to penicillin; Z90.49 Acquired absence of other specified parts of digestive tract; Z98.890 Other specified postprocedural states; Z79.899 Other long term (current) drug therapy
CPT/HCPCS: 99284; 71045; 87635; 80053; 85025; 87088; 87880; 87804 ×2; 81001; 81025; 36415; 94640; C9803; Q0169

== ENCOUNTER 2023-02-17 13:10 | Emergency (ER) | payer MEDICAID ==
[~2023-02-17] VITALS: Ht 152.4 cm; Wt 61.7 kg
[~2023-02-17 13:10] MED LIST changes: +LEVO750T68 PO
[2023-02-17] MEDS ORDERED: LEVETIRACETAM 500 MG/5 ML SD VIAL IV SCH (15:00)
[2023-02-17] MEDS ORDERED: 0.9%NACL 1000ML 1,000 ML IV ONE (15:00)
[2023-02-17 15:28] LABS: APPEARANCE,URINE CLEAR (CLEAR); BILIRUBIN,URINE NEGATIVE (NEGATIVE); COLOR,URINE LIGHT-YELLOW (YELLOW); GLUCOSE, URINE (UA) NEGATIVE (NEGATIVE); KETONES,URINE NEGATIVE (NEGATIVE); LEUKOCYTE ESTERASE ,URINE NEGATIVE Leu/uL (NEGATIVE); NITRATE,URINE NEGATIVE (NEGATIVE); OCCULT BLOOD,URINE NEGATIVE (NEGATIVE); PH,URINE 6.5 (5.0-8.0); PROTEIN,URINE NEGATIVE (NEGATIVE); UROBILINOGEN,URINE 0.2 mg/dL (0.2-1.0)
[2023-02-17 15:35] LABS: AMPHET/METH SCREEN,URINE NEGATIVE (NEGATIVE); BARBITURATE SCREEN, URINE NEGATIVE (NEGATIVE); BENZODIAZEPINES SCREEN,URINE NEGATIVE (NEGATIVE); CANNABINOID SCREEN,URINE NEGATIVE (NEGATIVE); COCAINE SCREEN,URINE POSITIVE (NEGATIVE); OPIATE SCREEN,URINE NEGATIVE (NEGATIVE); PHENCYCLIDINE SCREEN,URINE NEGATIVE (NEGATIVE)
[2023-02-17 15:47] LABS: MUCUS,URINE RARE LPF (None Seen); RBC,URINE 0-1 /HPF (0-1); SQUAMOUS EPITHELIAL CELL,UR RARE /HPF (0-2)
[2023-02-17 16:26] VITALS: BP 138/67
[2023-02-17 16:33] LABS: BASOPHILS % (AUTO) 0.4 % (0.0-5.0); EOSINOPHILS % (AUTO) 2.9 % (0.0-8.0); HEMATOCRIT 36.7 % (36-48); LYMPHOCYTES % (AUTO) 28.3 % (21.0-51.0); MEAN CORPUSCULAR HEMOGLOBIN 31.2 pg (27.0-33.0); MEAN CORPUSCULAR HGB CONC 33.8 g/dL (32.0-36.0); MEAN CORPUSCULAR VOLUME 92.2 fL (79-99); NEUTROPHILS % (AUTO) 62.1 % (40.0-77.0); PLATELET COUNT (AUTO) 286 K/uL (130-400); RED BLOOD CELL COUNT(AUTO) 3.98 MIL/uL (4.00-5.50); RED CELL DISTRIBUTION WIDTH 13.1 % (11.0-15.5)
[2023-02-17 16:53] LABS: CREATININE 0.6 mg/dL (0.5-1.5); POTASSIUM 3.9 mmol/L (3.5-5.1)
[2023-02-17 16:58] LABS: ALBUMIN 3.3 g/dL (3.5-5.0); TOTAL PROTEIN, SERUM 7.4 g/dL (6.0-8.3)
[2023-02-17] MEDS ORDERED: LEVE1000 PO (17:22)
== END 2023-02-17 18:35 | disposition home or self-care (01) ==
LOC: EDH 13:10
DX: S09.90XA Unspecified injury of head, initial encounter (principal); S69.81XA Other specified injuries of right wrist, hand and finger(s), initial encounter; F14.10 Cocaine abuse, uncomplicated; R56.9 Unspecified convulsions; Z20.822 Contact with and (suspected) exposure to COVID-19; X58.XXXA Exposure to other specified factors, initial encounter; Y93.89 Activity, other specified; Y92.89 Other specified places as the place of occurrence of the external cause; Y99.8 Other external cause status
CPT/HCPCS: 99285; 70450; 96374; 87635; 80053; 80305; 85025; 87880; 87804 ×2; 83605; 81001; 81025; 36415; 73090; 73130; 72125; 70486; C9803; J1953; J7030

== ENCOUNTER 2023-02-24 00:28 | Emergency (ER) | payer MEDICAID ==
[~2023-02-24] VITALS: Ht 152.4 cm; Wt 89.8 kg
[~2023-02-24 00:28] MED LIST changes: +LEVE1000 PO
[2023-02-24 00:32] VITALS: BP 152/99
[2023-02-24] MEDS ORDERED: IOHEXOL 350 MG/ML 100ML INFUS..BTL IV ONE (19:44)
== END 2023-02-24 04:50 | disposition left against medical advice (07) ==
LOC: EDH 00:28
DX: R05.9 Cough, unspecified (principal); R09.81 Nasal congestion; R51.9 Headache, unspecified
CPT/HCPCS: 99281; Q9967

== ENCOUNTER 2023-02-24 05:03 | Emergency (ER) | payer MEDICAID ==
[~2023-02-24] VITALS: Ht 152.4 cm; Wt 89.8 kg
[2023-02-24] MEDS ORDERED: ACETAMINOPHEN 500 MG TABLET PO ONE (06:30)
[2023-02-24] MEDS ORDERED: IBUPROFEN 600 MG TABLET PO ONE (06:30)
[2023-02-24] MEDS ORDERED: LIDOCAINE HCL 2% VISCOUS 15 ML UDCUP ONE (06:41)
[2023-02-24] MEDS ORDERED: LIDOCAINE HCL 2% VISCOUS 15 ML UDCUP PO ONE (07:00)
[2023-02-24 08:47] VITALS: BP 124/78
== END 2023-02-24 08:49 | disposition home or self-care (01) ==
LOC: EDH 05:03
DX: J06.9 Acute upper respiratory infection, unspecified (principal); Z79.52 Long term (current) use of systemic steroids; Z88.0 Allergy status to penicillin; Z20.822 Contact with and (suspected) exposure to COVID-19
CPT/HCPCS: 99284; 99281; 87635; 87880; 87804 ×2; C9803; Q9967

== ENCOUNTER 2023-03-19 16:29 | Emergency (ER) | payer MEDICAID ==
[~2023-03-19] VITALS: Ht 152.4 cm; Wt 72.6 kg
[2023-03-19 17:29] LABS: BASOPHILS % (AUTO) 0.3 % (0.0-5.0); EOSINOPHILS % (AUTO) 2.2 % (0.0-8.0); HEMATOCRIT 34.7 % (36-48); LYMPHOCYTES % (AUTO) 25.1 % (21.0-51.0); MEAN CORPUSCULAR HEMOGLOBIN 30.6 pg (27.0-33.0); MEAN CORPUSCULAR HGB CONC 33.4 g/dL (32.0-36.0); MEAN CORPUSCULAR VOLUME 91.6 fL (79-99); MONOCYTES % (AUTO) 5.4 % (3.0-13.0); NEUTROPHILS % (AUTO) 66.7 % (40.0-77.0); PLATELET COUNT (AUTO) 267 K/uL (130-400); RED BLOOD CELL COUNT(AUTO) 3.79 MIL/uL (4.00-5.50); RED CELL DISTRIBUTION WIDTH 13.6 % (11.0-15.5)
[2023-03-19 17:37] LABS: CREATININE 0.8 mg/dL (0.5-1.5); POTASSIUM 3.9 mmol/L (3.5-5.1)
[2023-03-19 17:42] LABS: ALBUMIN 3.4 g/dL (3.5-5.0); TOTAL PROTEIN, SERUM 7.3 g/dL (6.0-8.3)
[2023-03-19 18:51] VITALS: BP 128/47
== END 2023-03-19 19:20 | disposition home or self-care (01) ==
LOC: EDH 16:29
DX: N83.202 Unspecified ovarian cyst, left side (principal); N93.8 Other specified abnormal uterine and vaginal bleeding; J45.909 Unspecified asthma, uncomplicated; Z79.52 Long term (current) use of systemic steroids; Z88.0 Allergy status to penicillin
CPT/HCPCS: 36415; 76856; 80053; 85025

== ENCOUNTER 2023-10-06 15:42 | Emergency (ER) | payer MEDICAID ==
[~2023-10-06] VITALS: Ht 152.4 cm; Wt 81.6 kg
[2023-10-06 15:57] VITALS: BP 167/75
[2023-10-06] MEDS ORDERED: ACETAMINOPHEN 500 MG TABLET PO ONE (17:00)
[2023-10-06 17:14] LABS: RAPID GROUP A STREP negative (NEGATIVE)
[2023-10-06 17:21] LABS: INFLUENZA TYPE A Negative For Type A (NEGATIVE); INFLUENZA TYPE B Negative For Type B (NEGATIVE)
[2023-10-06 17:22] LABS: SARS-CoV-2, RNA, NAAT POSITIVE SARS CoV-2 (NEGATIVE)
[2023-10-06] MEDS ORDERED: LORA-868 PO (17:35)
[2023-10-06] MEDS ORDERED: D-ME118S56 PO (17:35)
[2023-10-06 17:37] VITALS: PULSE 88; RESP 18; TEMP 98.9; O2SAT 100
== END 2023-10-06 17:42 | disposition home or self-care (01) ==
LOC: EDH 15:42
DX: U07.1 COVID-19 (principal); R05.9 Cough, unspecified; R50.9 Fever, unspecified; E03.9 Hypothyroidism, unspecified; J45.909 Unspecified asthma, uncomplicated; Z88.0 Allergy status to penicillin
CPT/HCPCS: 99283; 87635; 87880; 87804 ×2; C9803

== ENCOUNTER 2024-03-05 16:09 | Emergency (ER) | payer MEDICAID ==
[~2024-03-05] VITALS: Ht 152.4 cm; Wt 82.6 kg
[~2024-03-05 16:09] MED LIST changes: +D-ME118S56 PO; +LORA-868 PO
[2024-03-05] MEDS ORDERED: IBUP-2077 PO (18:20)
[2024-03-05] MEDS ORDERED: CLIN-141 PO (18:20)
[2024-03-05 18:48] VITALS: BP 135/87; PULSE 71; RESP 20; O2SAT 98
== END 2024-03-05 18:48 | disposition home or self-care (01) ==
LOC: EDH 16:09
DX: S02.5XXA Fracture of tooth (traumatic), initial encounter for closed fracture (principal); Z79.899 Other long term (current) drug therapy; Z90.49 Acquired absence of other specified parts of digestive tract; Z98.890 Other specified postprocedural states; Z88.0 Allergy status to penicillin; X58.XXXA Exposure to other specified factors, initial encounter; Y93.89 Activity, other specified; Y92.89 Other specified places as the place of occurrence of the external cause; Y99.8 Other external cause status

== ENCOUNTER 2024-09-26 22:01 | Emergency (ER) | payer MEDICAID ==
[~2024-09-26] VITALS: Ht 152.4 cm; Wt 87.3 kg
[~2024-09-26 22:01] MED LIST changes: -BENZ-39 PO; -D-ME118S56 PO; -DIPH1POW36 PO; -DIVA500T69 PO; -IBUP-2070 PO; -LEVE-43 PO; -LEVE1000 PO; +LEVE500T19 PO; -LEVO750T68 PO; -LORA-868 PO; -MEDR10TA PO; -METH4TAB3 PO
--- NOTE | 2024-09-26 22:08 | NUR ---
UA CUP PROVIDED
[2024-09-26 22:33] LABS: APPEARANCE,URINE CLEAR (CLEAR); BILIRUBIN,URINE NEGATIVE (NEGATIVE); COLOR,URINE LIGHT-YELLOW (YELLOW); GLUCOSE, URINE (UA) NEGATIVE (NEGATIVE); KETONES,URINE NEGATIVE (NEGATIVE); LEUKOCYTE ESTERASE ,URINE NEGATIVE Leu/uL (NEGATIVE); NITRATE,URINE NEGATIVE (NEGATIVE); OCCULT BLOOD,URINE NEGATIVE (NEGATIVE); PH,URINE 5.5 (5.0-8.0); PROTEIN,URINE 10 mg/dL (NEGATIVE); UROBILINOGEN,URINE 0.2 mg/dL (0.2-1.0)
[2024-09-26 22:36] LABS: ADD UA MICROSCOPIC YES
[2024-09-26 22:37] LABS: MUCUS,URINE RARE LPF (None Seen); SQUAMOUS EPITHELIAL CELL,UR RARE /HPF (0-2)
[2024-09-26 22:37] LABS: BASOPHILS # (AUTO) 0.04 K/uL (0.00-0.20); BASOPHILS % (AUTO) 0.3 % (0.0-5.0); CREATININE 0.8 mg/dL (0.5-1.0); EOSINOPHILS # (AUTO) 0.43 K/uL (0.00-0.70); EOSINOPHILS % (AUTO) 3.6 % (0.0-8.0); HEMATOCRIT 35.5 % (36-48); IMMATURE GRANULOCYTE ABSOLUTE 0.04 K/uL (0-1); LYMPHOCYTES # (AUTO) 3.4 K/uL (1.0-4.8); LYMPHOCYTES % (AUTO) 28.5 % (21.0-51.0); MEAN CORPUSCULAR HEMOGLOBIN 32.4 pg (27.0-33.0); MEAN CORPUSCULAR HGB CONC 33.5 g/dL (32.0-36.0); MEAN CORPUSCULAR VOLUME 96.7 fL (79-99); MONOCYTES # (AUTO) 0.8 K/uL (0.1-1.0); MONOCYTES % (AUTO) 6.4 % (3.0-13.0); NEUTROPHILS # (AUTO) 7.3 K/uL (1.8-7.7); NEUTROPHILS % (AUTO) 60.9 % (40.0-77.0); PLATELET COUNT (AUTO) 255 K/uL (130-400); POTASSIUM 3.7 mmol/L (3.5-5.1); RED BLOOD CELL COUNT(AUTO) 3.67 MIL/uL (4.00-5.50); RED CELL DISTRIBUTION WIDTH 13.1 % (11.0-15.5)
--- NOTE | 2024-09-26 22:52 | ERN ---
ED Note History of Present Illness Stated Complaint: LEFT LOWER QUADRANT PAIN Chief Complaint: Pelvic Pain Time Seen by MD: 22:06 Dictation: This is a 44-year-old obese female who presented to the emergency room with complaints of left lower quadrant abdominal pain for the past 4 days. She was admitted to the hospital during the last week of August for abdominal pain and nausea vomitings and at which time Dr. Gage operated and removed left ovary for an ovarian cyst on 09/06/2024. Postoperative course was uneventful and she was doing fairly well she was seen at [facility] on 09/25 and was told coat she had fluid in the wound. She denied any drainage of incision site. No nausea vomitings diarrhea hematemesis or melena she does report intermittently urinary retention. She took Motrin at 8:00 p.m.. She denied any hematuria dysuria. Temperature 97.8 pulse 67 respirations 20 blood pressure 191/121 with a pulse oximetry of 98% on room air Her chronic medical problems include anxiety depression bipolar disorder, asthma and history of seizure disease. Allergies: Coded Allergies: morphine (Unverified Allergy, Mild, ITCHING, 09/06/24) Penicillins (Unverified Allergy, Unknown, RASH, 10/25/20) Home Meds Reported Medications Levetiracetam (Levetiracetam) 500 Mg Tablet, 1 TAB PO BID for 30 Days, #60 TAB 0 Refills 09/06/24 Past Medical History Past Medical History: Anxiety, Asthma, Bipolar, Depression, Seizure Additional Past Medical Hx: OVARIAN CYST Surgical History: Cholecystectomy, Other, Surgical History Other: LEFT OVARY Social History: Negative History: Not Applicable RN Note Reviewed/Agreed w/PFSH: Yes Review of System Dictation Constitutional: Negative for fever,chills, and weight loss Eyes: Negative for injury, pain,redness, and discharge ENT: Negative for injury,pain or swelling Cardiovascular: Negative for chest pain, palpitations, and edema Respiratory: Negative for shortness of breath, cough, and wheezing, Abdomen/GI: Positive for left lower quadrant abdominal pain, denies nausea, vomiting, diarrhea, and constipation Back: Negative for injury and pain : Negative for injury, bleeding and discharge MS/Extremity: Negative for injury and deformity Skin: Negative for rash, and discoloration Neuro: Negative for headache, weakness, numbness, tingling, and seizure Psych: Negative for suicide ideation, homicidal ideation, and hallucinations Initial Vital Sign VS Vital Signs Date Time Temp Pulse Resp B/P (MAP) Pulse Ox O2 Delivery O2 Flow Rate FiO2 09/26/24 22:02 97.9 67 20 191/121 98 Room Air 09/26/24 22:09 0 21 Physical Exam Dictation General: awake, alert, NAD Head/Face: Normocephalic, atraumatic Eyes: PERRL, EOMI, vision at baseline ENT: oral cavity clear, TMs clear, no signs of infection Neck: Trachea midline, supple, no nuchal rigidity Cardiovascular: RRR, normal S1/S2, No MRGs, no JVD Respiratory: CTAB, no respiratory distress, No rales or wheezes Abdomen: Soft, mild tenderness in the left flank and lower quadrant, non- distended, normal bowel sounds, no guarding or rebound. Skin: Warm, dry, normal turgor, no rash MS/Extremity: Pulses equal, no cyanosis, neurovascular intact, FROM Neuro: COAx4, GCS 15, strength 5/5, CN 2-12 intact, normal cerebellar exam, normal gait, Psych: Normal behavior, mood, and affect normal Extremities-trace edema without any palpable cords, Homans sign is negative Results (Laboratory/Radiology) Laboratory/Radiology Laboratory Tests Test 09/26/24 22:00 09/26/24 22:15 Urine Color LIGHT-YELLOW (YELLOW) Urine Appearance CLEAR (CLEAR) Urine pH 5.5 (5.0-8.0) Urine Specific Jarales 1.032 (1.001-1.031) Urine Protein 10 mg/dL (NEGATIVE) H Urine Glucose (UA) NEGATIVE mg/dL (NEGATIVE) Urine Ketones NEGATIVE mg/dL (NEGATIVE) Urine Occult Blood NEGATIVE (NEGATIVE) Urine Nitrate NEGATIVE (NEGATIVE) Urine Bilirubin NEGATIVE mg/dL (NEGATIVE) Urine Urobilinogen 0.2 mg/dL (0.2-1.0) Urine Leukocyte Esterase NEGATIVE Latanya/uL Urine RBC 2-5 /HPF (0-1) H Urine WBC 2-5 /HPF (0-1) H Urine Squamous Epithelial Cells RARE /HPF (0-2) Urine Bacteria None /HPF (None Seen) White Blood Count 12.0 K/uL (4.8-10.8) H Red Blood Count 3.67 MIL/uL (4.00-5.50) L Hemoglobin 11.9 g/dL (12.0-16.0) L Hematocrit 35.5 % (36-48) L Mean Corpuscular Volume 96.7 fL (79-99) Mean Corpuscular Hemoglobin 32.4 pg (27.0-33.0) Mean Corpuscular Hemoglobin Concent 33.5 g/dL (32.0-36.0) Red Cell Distribution Width 13.1 % (11.0-15.5) Platelet Count 255 K/uL (130-400) Mean Platelet Volume 14.1 fL (7.5-10.5) H Immature Granulocyte % (Auto) 0.3 % (0-1) Neutrophils (%) (Auto) 60.9 % (40.0-77.0) Lymphocytes (%) (Auto) 28.5 % (21.0-51.0) Monocytes (%) (Auto) 6.4 % (3.0-13.0) Eosinophils (%) (Auto) 3.6 % (0.0-8.0) Basophils (%) (Auto) 0.3 % (0.0-5.0) Neutrophils # (Auto) 7.3 K/uL (1.8-7.7) Lymphocytes # (Auto) 3.4 K/uL (1.0-4.8) Monocytes # (Auto) 0.8 K/uL (0.1-1.0) Eosinophils # (Auto) 0.43 K/uL (0.00-0.70) Basophils # (Auto) 0.04 K/uL (0.00-0.20) Absolute Immature Granulocyte (auto 0.04 K/uL (0-1) Nucleated Red Blood Cells 0.0 % (0.0-0.19) Sodium Level 138 mmol/L (136-145) Potassium Level 3.7 mmol/L (3.5-5.1) Chloride Level 105 mmol/L (101-111) Carbon Dioxide Level 28 mmol/L (21-32) Blood Urea Nitrogen 14 mg/dL (7-18) Creatinine 0.8 mg/dL (0.5-1.0) Glomerular Filtration Rate Calc 94 mL/min (>90) Random Glucose 93 mg/dL (70-105) Total Calcium 8.3 mg/dL (8.5-10.1) L Labs Reviewed?: Yes ED Course ED Course Orders Procedure Category Date Status Time Cbc With Differential LAB 09/26/24 Complete 22:13 Basic Metabolic Panel LAB 09/26/24 Complete 22:13 Urinalysis Profile LAB 09/26/24 Complete 22:13 Ketorolac PHA 09/26/24 Complete Tromethamine 30mg/Ml 23:30 Hydralazine 20mg Inj PHA 09/26/24 Complete (Apresoline 20mg In 23:30 Current Medications Medications (Trade) Dose Ordered Sig/Luis Daniel Route PRN Reason Start Time Stop Time Status Last Admin Dose Admin Hydralazine HCl (APRESOLine 20MG INJ) 20 mg ONCE ONCE IM 09/26/24 23:30 09/26/24 23:31 DC 09/26/24 23:11 Ketorolac Tromethamine (toRADol) 30 mg ONCE ONCE IM 09/26/24 23:30 09/26/24 23:31 DC 09/26/24 23:12 Vital Signs Date Time Temp Pulse Resp B/P (MAP) Pulse Ox O2 Delivery O2 Flow Rate FiO2 09/27/24 00:07 98.1 72 20 120/88 99 Room Air* 0 21 09/26/24 22:09 98.1 70 18 179/114 99 Room Air* 0 21 09/26/24 22:02 97.9 67 20 191/121 98 Room Air We will perform diagnostic labs, advanced imaging and administer medications according to the patient's complaint. Once the results are available, will review and personally interpreted the labs to rule out any acute life- threatening emergency the trach require immediate intervention and treatment. I will then re-evaluate the patient after treatment and diagnostic exams have return to determine whether the patient requires any further testing, can safely be discharged home or need further admission to hospital for additional treatment and evaluation. Labs [place] [address] hemoglobin of 11.9, BNP 7 is within normal limits, urinalysis is unremarkable Medical Decision Making MDM MDM: Differential diagnosis: Diverticulitis, postop pain from recent ovarian cyst removal, renal stone, pyelonephritis Rationale: Tests considered and ordered secondary to shared decision making include: Previous outside records reviewed: Old ER visits. Risk of complication and/or morbidity or mortality of patient management: None Medications-Per medication reconciliation Need for hospitalization: Patient does not meet criteria for hospitalization. Need for emergency major/minor surgery: No There are no social concerns with this patient. Prescription drug management Prescriptions will include symptomatic care Patient's prior external medical records from other ER visits were reviewed by me as indicated. Prior testing and results from previous visits were reviewed. Prior tests were taken into account with medical decision making and resource utilization, independent historian/historians were used to obtain complete medical history. I independently interpreted the test that were performed, results were reviewed by me and considered findings on radiology if ordered. Medical management and examination interpretation discussions were had by me with other qualified healthcare professionals as indicated for the patient's care. DX & DISP Disposition: Discharge Departure Impression: Primary Impression: Postoperative abdominal pain Additional Impression: Left ovarian cyst Condition: Stable Additional Instructions: Patient and the caregiver have been informed of all the diagnostic tests and the imaging conducted during the today's visit to the emergency room and has verbalized understanding of the results I have personally reviewed and interpreted all diagnostic exams performed here in the ER today as well as the vital signs documented by the nursing staff. The patient is now being discharged to home and should follow up with the primary care physician or the specialist as directed by the ER staff. Follow-up with primary care provider in 1 to 2 days. Take medications as directed here in the emergency room. Okay to continue home medications unless otherwise discussed during your visit in the emergency room today. Return to your nearest emergency room if symptoms worsen or if there is no improvement. Call 911 if you need immediate assistance. Take Tylenol or Motrin [id number] as needed and if no contraindications are present. Increase oral hydration. A wound culture or urine culture was ordered here in the emergency room department please follow-up with primary care provider and advise them to get repeat ports from our facility. If you had any Abraham wrap/splints that were applied here, please do not remove them until you see your primary care or specialty. Patient has a follow-up appointment at with Dr. Gage on 10/01/2024 Referrals: SELF,REFERRAL (PCP) RICARDO GOMEZ MD Sep 26, 2024 22:52
[2024-09-26] MEDS: hydrALAZine 20MG/ML VIAL IM ONE (23:11)
[2024-09-26] MEDS: ketOROlac 30MG VIAL (30MG/ML) IM ONE (23:12)
[2024-09-27 00:07] VITALS: BP 120/88; PULSE 72; RESP 20; TEMP 98.1; O2SAT 99
== END 2024-09-27 00:19 | disposition home or self-care (01) ==
LOC: EDH 22:01
DX: G89.18 Other acute postprocedural pain (principal); R10.32 Left lower quadrant pain; N83.202 Unspecified ovarian cyst, left side; J45.909 Unspecified asthma, uncomplicated; Z79.899 Other long term (current) drug therapy; Z88.0 Allergy status to penicillin; Z88.5 Allergy status to narcotic agent; Z90.49 Acquired absence of other specified parts of digestive tract; Z98.890 Other specified postprocedural states
CPT/HCPCS: 99284; 80048; 85025; 81001; 36415; 96372 ×2; J0360; J1885

== ENCOUNTER 2025-06-12 09:29 | Emergency (ER) | payer MEDICAID ==
[~2025-06-12] VITALS: Ht 152.4 cm; Wt 81.6 kg
[2025-06-12] MEDS: TETRACAINE HCL 0.5% 4 ML OPHTH SOLN OP STA (10:29)
[2025-06-12] MEDS: FLUORESCEIN SODIUM 1 STRIP STRIP OP ONE (10:56)
[2025-06-12] MEDS: FLUORESCEIN SODIUM 1 STRIP STRIP ONE (10:57)
[2025-06-12 11:35] LABS: IMMATURE GRANULOCYTE ABSOLUTE 0.04 K/uL (0-1); NUCLEATED RED BLOOD CELLS 0.0 % (0.0-0.19); PLATELET COUNT (AUTO) 282 K/uL (130-400); RED BLOOD CELL COUNT(AUTO) 4.01 MIL/uL (4.00-5.50); RED CELL DISTRIBUTION WIDTH 13.8 % (11.0-15.5); WHITE BLOOD COUNT (AUTO) 11.7 K/uL (4.8-10.8)
[2025-06-12 11:37] LABS: CREATININE 0.7 mg/dL (0.5-1.0); GLOMERULAR FILTR. RATE CALC 109.0 mL/min (>90); GLUCOSE,RANDOM 111.0 mg/dL (70-105); SODIUM SERUM 137.0 mmol/L (136-145); UREA NITROGEN, BLOOD 7.0 mg/dL (7-18)
[2025-06-12] MEDS ORDERED: CLIN-141 PO (12:22)
[2025-06-12] MEDS ORDERED: GENT5DRO24 OS (12:22)
--- NOTE | 2025-06-12 12:22 | ERN ---
ED Note History of Present Illness Stated Complaint: EYE PAIN Chief Complaint: Eye Problems Time Seen by MD: 09:36 Dictation: 45-year-old female presenting to the emergency department with left eye pain patient has history of contact use reports that she began having pain and removed the contact of the left eye but now has redness and some swelling. No fever no chills no history of trauma Allergies: Coded Allergies: morphine (Unverified Allergy, Mild, ITCHING, 09/06/24) Penicillins (Unverified Allergy, Unknown, RASH, 10/25/20) Home Meds Reported Medications Levetiracetam (Levetiracetam) 500 Mg Tablet, 1 TAB PO BID for 30 Days, #60 TAB 0 Refills 09/06/24 Past Medical History Past Medical History: Seizure Additional Past Medical Hx: OVARIAN CYST Surgical History: Other Surgical History Other: ovary removed Social History: Negative History: Not Applicable Review of System Dictation Constitutional: Negative for fever,chills, and weight loss Eyes: Per HPI ENT: Negative for injury,pain or swelling Cardiovascular: Negative for chest pain, palpitations, and edema Respiratory: Negative for shortness of breath, cough, and wheezing, Abdomen/GI: Negative for abdominal pain, nausea, vomiting, diarrhea, and constipation Back: Negative for injury and pain : Negative for injury, bleeding and discharge MS/Extremity: Negative for injury and deformity Skin: Negative for rash, and discoloration Neuro: Negative for headache, weakness, numbness, tingling, and seizure Psych: Negative for suicide ideation, homicidal ideation, and hallucinations Initial Vital Sign VS Vital Signs Date Time Temp Pulse Resp B/P (MAP) Pulse Ox O2 Delivery O2 Flow Rate FiO2 06/12/25 09:34 98.8 72 18 168/104 98 Room Air 0 06/12/25 09:37 21 Physical Exam Dictation General: awake, alert, NAD Head/Face: Normocephalic, atraumatic Eyes: PERRL, EOMI, vision at baseline, left periorbital swelling exam of left eye shows some mild conjunctival injection with perilimbic sparing, anterior chambers clear with lamp staining shows corneal abrasion to the central portion of cornea about 1-2 mm in size, patient has intra-ocular movement to the left eye without pain. ENT: oral cavity clear, TMs clear, no signs of infection Neck: Trachea midline, supple, no nuchal rigidity Cardiovascular: RRR, normal S1/S2, No MRGs, no JVD Respiratory: CTAB, no respiratory distress, No rales or wheezes Abdomen: Soft, non-tender, non-distended, normal bowel sounds, no guarding or rebound. Skin: Warm, dry, normal turgor, no rash MS/Extremity: Pulses equal, no cyanosis, neurovascular intact, FROM Neuro: COAx4, GCS 15, strength 5/5, CN 2-12 intact, normal cerebellar exam, normal gait, Results (Laboratory/Radiology) Laboratory/Radiology Laboratory Tests Test 06/12/25 11:03 White Blood Count 11.7 K/uL (4.8-10.8) H Red Blood Count 4.01 MIL/uL (4.00-5.50) Hemoglobin 13.1 g/dL (12.0-16.0) Hematocrit 38.2 % (36-48) Mean Corpuscular Volume 95.3 fL (79-99) Mean Corpuscular Hemoglobin 32.7 pg (27.0-33.0) Mean Corpuscular Hemoglobin Concent 34.3 g/dL (32.0-36.0) Red Cell Distribution Width 13.8 % (11.0-15.5) Platelet Count 282 K/uL (130-400) Mean Platelet Volume 13.2 fL (7.5-10.5) H Immature Granulocyte % (Auto) 0.3 % (0-1) Neutrophils (%) (Auto) 73.8 % (40.0-77.0) Lymphocytes (%) (Auto) 16.1 % (21.0-51.0) L Monocytes (%) (Auto) 7.0 % (3.0-13.0) Eosinophils (%) (Auto) 2.5 % (0.0-8.0) Basophils (%) (Auto) 0.3 % (0.0-5.0) Neutrophils # (Auto) 8.6 K/uL (1.8-7.7) H Lymphocytes # (Auto) 1.9 K/uL (1.0-4.8) Monocytes # (Auto) 0.8 K/uL (0.1-1.0) Eosinophils # (Auto) 0.29 K/uL (0.00-0.70) Basophils # (Auto) 0.03 K/uL (0.00-0.20) Absolute Immature Granulocyte (auto 0.04 K/uL (0-1) Nucleated Red Blood Cells 0.0 % (0.0-0.19) Sodium Level 137 mmol/L (136-145) Potassium Level 3.9 mmol/L (3.5-5.1) Chloride Level 102 mmol/L (101-111) Carbon Dioxide Level 26 mmol/L (21-32) Blood Urea Nitrogen 7 mg/dL (7-18) Creatinine 0.7 mg/dL (0.5-1.0) Glomerular Filtration Rate Calc 109 mL/min (>90) Random Glucose 111 mg/dL (70-105) H Total Calcium 8.7 mg/dL (8.5-10.1) Labs Reviewed?: Yes ED Course ED Course Orders Procedure Category Date Status Time Tetracaine Hcl PHA 06/12/25 Complete (Pontocaine 0.5% 10:12 Fluorescein Sodium PHA 06/12/25 Complete (Jiprl-Y-Orzyp At) 10:30 Fluorescein Sodium PHA 06/12/25 Complete (Kdqsr-D-Vlovo At) 10:33 Ondansetron 4mg Inj PHA 06/12/25 Complete (Zofran 4mg Inj) 11:00 Fentanyl Citrate Pf PHA 06/12/25 Complete 0.05 Mg/Ml (Fentanyl 10:44 Ceftriaxone 2gm Vial PHA 06/12/25 Complete (Rocephin 2gm Inj) 11:00 Basic Metabolic Panel LAB 06/12/25 Complete 10:49 Cbc With Differential LAB 06/12/25 Complete 10:49 Current Medications Medications (Trade) Dose Ordered Sig/Luis Daniel Route PRN Reason Start Time Stop Time Status Last Admin Dose Admin Ceftriaxone Sodium (Rocephin 2gm Inj) 2 gm ONCE ONCE IVPB 06/12/25 11:00 06/12/25 11:01 DC 06/12/25 11:31 Fentanyl Citrate (FENTanyl CITRate PF 50 MCG/ 1 ML 2ML VIAL) 100 mcg ONCE STAT IVP 06/12/25 10:44 06/12/25 10:59 DC 06/12/25 11:31 Fluorescein Sodium (Jfapf-T-Mhmiq At) 1 strip STK-MED ONCE .ROUTE 06/12/25 10:33 06/12/25 10:33 DC Fluorescein Sodium (Qszhg-T-Ngnxz At) 2 strip ONCE ONCE OP 06/12/25 10:30 06/12/25 10:40 DC 06/12/25 10:56 Ondansetron HCl (zoFRAN 4MG INJ) 4 mg ONCE ONCE IVP 06/12/25 11:00 06/12/25 11:01 DC 06/12/25 11:31 Tetracaine HCl (Pontocaine 0.5% Ophth Soln) 1 OR 2 DROPS ONCE STAT OP 06/12/25 10:12 06/12/25 10:15 DC 06/12/25 10:29 Vital Signs Date Time Temp Pulse Resp B/P (MAP) Pulse Ox O2 Delivery O2 Flow Rate FiO2 06/12/25 09:37 98.8 72 18 168/104 98 Room Air* 0 21 06/12/25 09:34 98.8 72 18 168/104 98 Room Air 0 Medical Decision Making MDM MDM: Differential diagnosis: Rationale: Tests considered and ordered secondary to shared decision making inc lude: Previous outside records reviewed: Old ER visits. Risk of complication and/or morbidity or mortality of patient management: None Medications-Per medication reconciliation Need for hospitalization: Patient does not meet criteria for hospitalization. Need for emergency major/minor surgery: No There are no social concerns with this patient. Prescription drug management Prescriptions will include symptomatic care Patient's prior external medical records from other ER visits were reviewed by me as indicated. Prior testing and results from previous visits were reviewed. Prior tests were taken into account with medical decision making and resource utilization, independent historian/historians were used to obtain complete medical history. I independently interpreted the test that were performed, results were reviewed by me and considered findings on radiology if ordered. Medical management and examination interpretation discussions were had by me with other qualified healthcare professionals as indicated for the patient's care. 45-year-old female with corneal abrasion and preseptal cellulitis secondary to contact use contact was removed patient was given IV antibiotics and pain medicine reports she feels better repeat ocular exam looks stable again anterior chambers clear and patient is able to move eye without pain we will discharge on topical and p.o. antibiotics and referred to [facility] for Friday patient advised to return if infection or pain gets worse or if she is unable to get consult with equal opportunity assistant. DX & DISP Disposition: Discharge Departure Impression: Primary Impression: Left corneal abrasion Additional Impression: Preseptal cellulitis of left eye Condition: Stable Scripts Gentamicin Sulfate (Gentamicin Sulfate) 0.3 % Drops 2 DROP OS QID for 5 Days, #5 ML 0 Refills Prov: TAMIA ALCANTARA MD 06/12/25 Clindamycin HCl (Clindamycin HCl) 300 Mg Capsule 1 CAP PO QID for 10 Days, #40 CAP 0 Refills Prov: TAMIA ALCANTARA MD 06/12/25 Referrals: SELF,REFERRAL (PCP) TAMIA ALCANTARA MD Jun 12, 2025 12:22
[2025-06-12 12:43] VITALS: BP 157/89; PULSE 77; RESP 17; TEMP 98.7; O2SAT 98
== END 2025-06-12 12:54 | disposition home or self-care (01) ==
LOC: EDH 09:29
DX: S05.02XA Injury of conjunctiva and corneal abrasion without foreign body, left eye, initial encounter (principal); L03.213 Periorbital cellulitis; Z88.0 Allergy status to penicillin; Z88.5 Allergy status to narcotic agent; Z90.721 Acquired absence of ovaries, unilateral; X58.XXXA Exposure to other specified factors, initial encounter; Y93.89 Activity, other specified; Y92.89 Other specified places as the place of occurrence of the external cause; Y99.8 Other external cause status
CPT/HCPCS: 99284; 96374; 96375; 80048; 85025; 36415; J3010; J0696; J2405